=== PATIENT | female | born 1975 | race Caucasian/White ===

== ENCOUNTER 2019-02-05 20:48 | Emergency (ER) | payer OTHER ==
[~2019-02-05] VITALS: Ht 157.5 cm; Wt 85.7 kg
[~2019-02-05 20:48] MED LIST: IBUP-974 PO
[2019-02-05 20:54] VITALS: BP 147/90
--- NOTE | 2019-02-05 21:01 | NUR ---
PT AMBULATED TO LOBBY WITH VSS.
--- NOTE | 2019-02-05 21:13 | NUR ---
PT AMBULATED TO BED 02.
--- NOTE | 2019-02-05 21:19 | NUR ---
43 Y/O F PRESENTS TO ER C/O SMALL PINPOINT WHITE BUMP TO BACK OF HEAD ABOUT 1.5 HOURS AGO. PT DENIES ANY HEAD TRAUMA OR INJURY. A&O X4. VSS. PAIN LEVEL 3/10 AT REST. PAIN LEVEL 7/10 TENDER TO TOUCH. PT HAS NAUSEA AND 2 SMALL EPISODES OF DIARRHEA SINCE ONSET OF HEAD PAIN. PT AFEBRILE, +CHILLS. PT ALSO C/O BILATERAL EAR PAIN. ALLERGIES: CODEINE. MED HX: DEPRESSION. HOB ELEVATED, BED IN LOWEST POSITION, BED RAIL UP X1. WAITING FOR ERMD TO EVALUATE PT.
--- NOTE | 2019-02-05 21:46 | NUR ---
DR. NORMAN EVALUATING PT BEDSIDE.
[2019-02-05] MEDS ORDERED: KETOROLAC 60 MG/2 ML VIAL IM ONE (21:50)
--- NOTE | 2019-02-05 22:13 | NUR ---
Patient discharged with v/s stable. Written and verbal after care instructions given and explained. Pt encouraged to drink plenty of fluid and take motrin as needed for pain. Patient alert, oriented and verbalized understanding of instructions. Ambulatory with steady gait. All questions addressed prior to discharge. ID band removed. Patient advised to follow up with PMD. Rx of MOTRIN 800MG WAS given. Patient educated on indication of medication including possible reaction and side effects. Opportunity to ask questions provided and answered.
[2019-02-05 22:14] VITALS: BP 147/90
== END 2019-02-05 22:14 | disposition home or self-care (01) ==
LOC: MED 20:48
DX: R51 Headache (principal); R19.7 Diarrhea, unspecified
CPT/HCPCS: 81002; 81025; 96372; 99283; J1885

== ENCOUNTER 2019-04-29 19:30 | Emergency (ER) | payer OTHER ==
[~2019-04-29] VITALS: Ht 157.5 cm; Wt 85.0 kg
[2019-04-29 19:47] VITALS: BP 128/71
--- NOTE | 2019-04-29 19:56 | NUR ---
AMBULATES TO LOBBY WITH UPRIGHT STEADY GAIT. URINE CUP PROVIDED. AWAITING AVAILABLE BED.
--- NOTE | 2019-04-29 21:17 | NUR ---
43 Y/O FEMALE C/O 01/19 EPIGASTRIC PAIN WITH NAUSEA, DIZZINESS THAT COMES AND GOES SINCE LAST NIGHT. DIARRHEA SINCE TODAY. BOWEL SOUNDS HEARD THROUGHOUT; NO TENDERNESS UPON PALPATION. PATIENT STATESM "I TRIED TO FORCE MYSELF TO VOMIT. I TOOK ANDREA SELTZER AND PEDIALYTE; NO RELIEF". ERMD MADE AWARE OF STATUS. SIDE RAILSX1. WILL CONTINUE TO MONITOR. PMH-- ASTHMA, DEPRESSION RX-- INHALER NEEDED, ALKASELTZER; NO RELIEF Addendum: 04/29/19 at 2209 by MEDDI PER PATIENT, "I ATE SOME SLOPPY JOES, AND I THINK THAT MIGHT HAVE SOMETHING TO DO WITH IT".
--- NOTE | 2019-04-29 21:17 | NUR ---
Note undone in EDM - 04/29/19 at 2142 by ARACELI 89 Y/O FEMALE C/O10/10 EPIGASTRIC PAIN WITH NAUSEA, DIZZINESS THAT COMES AND GOES SINCE LAST NIGHT. DIARRHEA SINCE TODAY. BOWEL SOUNDS HEARD THROUGHOUT; NO TENDERNESS UPON PALPATION. PATIENT STATESM "I TRIED TO FORCE MYSELF TO VOMIT. I TOOK ANDREA SELTZER AND PEDIALYTE; NO RELIEF". ERMD MADE AWARE OF STATUS. SIDE RAILSX1. WILL CONTINUE TO MONITOR. PMH-- ASTHMA, DEPRESSION RX-- INHALER NEEDED, ALKASELTZER; NO RELIEF
--- NOTE | 2019-04-29 21:17 | NUR ---
pt ambulated to er bed 04
[2019-04-29] MEDS ORDERED: FAMOTIDINE 20 MG TAB PO ONE (22:10)
[2019-04-29] MEDS ORDERED: ALUMINUM HYD/MAG/SIMETHICONE 30 ML UDC PO ONE (22:10)
[2019-04-29 23:00] VITALS: BP 128/71
--- NOTE | 2019-04-29 23:00 | NUR ---
Patient discharged with v/s stable. Written and verbal after care instructions given and explained. Patient alert, oriented and verbalized understanding of instructions. Ambulatory with steady gait. All questions addressed prior to discharge. ID band removed. Patient advised to follow up with PMD. Rx of PEPCID given. Patient educated on indication of medication including possible reaction and side effects. Opportunity to ask questions provided and answered. DISCHARGED BY DR. WHIET.
== END 2019-04-29 23:00 | disposition home or self-care (01) ==
LOC: MED 19:30
DX: K29.70 Gastritis, unspecified, without bleeding (principal); J45.909 Unspecified asthma, uncomplicated; F32.9 Major depressive disorder, single episode, unspecified; R42 Dizziness and giddiness; Z88.5 Allergy status to narcotic agent; Z98.51 Tubal ligation status
CPT/HCPCS: 81002; 81025; 99283

== ENCOUNTER 2022-02-01 17:25 | Emergency (ER) | payer OTHER ==
[~2022-02-01] VITALS: Ht 160 cm; Wt 89.4 kg
[2022-02-01 17:44] VITALS: BP 135/75
--- NOTE | 2022-02-01 18:00 | NUR ---
46 Y/O FEMALE BIB SELF C/O VAGINAL PAIN. PER PT SHE HAS A "LONG DANGLING BUMP" BY THE RIGHT SIDE OF THE VAGINAX3 WEEKS. DENIES ANY PELVIC PAIN, ABD PAIN, BLEEDING/DISCHARGE. pmh: heart murmur adverse reaction: codeine ("passed out") med: ibuprofen
[2022-02-01] MEDS ORDERED: NAPR-1704 PO ×2 (18:17→18:31)
--- NOTE | 2022-02-01 18:29 | NUR ---
Patient discharged with v/s stable. Written and verbal after care instructions ABOUT SKIN TAG AND ATROPHIC VAGINITIS given and explained. Patient alert, oriented and verbalized understanding of instructions. Ambulatory with steady gait. All questions addressed prior to discharge. ID band removed. Patient advised to follow up with PMD. Rx of NAPROXEN given. Patient educated on indication of medication including possible reaction and side effects. Opportunity to ask questions provided and answered.
== END 2022-02-01 18:29 | disposition home or self-care (01) ==
LOC: MED 17:25
DX: L91.8 Other hypertrophic disorders of the skin (principal); J45.909 Unspecified asthma, uncomplicated; Z90.49 Acquired absence of other specified parts of digestive tract
CPT/HCPCS: 99282

== ENCOUNTER 2022-06-14 15:54 | Emergency (ER) | payer OTHER ==
[~2022-06-14] VITALS: Ht 157.5 cm; Wt 91.3 kg
[~2022-06-14 15:54] MED LIST changes: +NAPR-1704 PO
[2022-06-14 15:59] VITALS: BP 137/66
[2022-06-14 16:25] LABS: BASOPHILS # (AUTO) 0.1 K/uL (0.00-0.22); BASOPHILS % (AUTO) 0.7 % (0.0-2.0); EOSINOPHILS # (AUTO) 0.3 K/uL (0-0.4); EOSINOPHILS % (AUTO) 3.4 % (0.0-4.0); HEMATOCRIT 40.9 % (36-48); LYMPHOCYTES % (AUTO) 32.9 % (20.5-51.1); MEAN CORPUSCULAR HEMOGLOBIN 29 pg (27-31); MEAN CORPUSCULAR HGB CONC 34 g/dL (33-37); MEAN CORPUSCULAR VOLUME 84.6 fL (80-94); MONOCYTES # (AUTO) 0.5 K/uL (0.8-1.0); MONOCYTES % (AUTO) 4.9 % (1.7-9.3); NEUTROPHILS # (AUTO) 5.3 K/uL (1.8-7.7); NEUTROPHILS % (AUTO) 58.1 % (42.2-75.2); PLATELET COUNT (AUTO) 290 K/uL (140-450); RED BLOOD CELL COUNT(AUTO) 4.83 MIL/uL (4.20-5.40); RED CELL DISTRIBUTION WIDTH 13.4 % (11.6-13.7); WHITE BLOOD COUNT (AUTO) 9.2 K/uL (4.8-10.8)
[2022-06-14 16:31] LABS: APPEARANCE,URINE CLEAR (CLEAR); BILIRUBIN,URINE NEGATIVE (NEGATIVE); BLOOD, URINE NEGATIVE (NEGATIVE); COLOR,URINE YELLOW (YELLOW); LEUKOCYTE ESTERASE ,URINE NEGATIVE (NEGATIVE); NITRITE, URINE NEGATIVE (NEGATIVE); PH,URINE 5.5 (5.0-9.0); UGLUCOSE NEGATIVE (NEGATIVE)
[2022-06-14] MEDS ORDERED: KETOROLAC 30 MG/ML VIAL IM ONE (16:35)
[2022-06-14 17:03] LABS: ALBUMIN 4.3 g/dL (3.4-5.0); ANION GAP 13.9 (8-16); CARBON DIOXIDE 25.5 mmol/L (21-32); POTASSIUM 3.4 mmol/L (3.5-5.1); TOTAL BILIRUBIN 0.4 mg/dL (0.0-1.0)
[2022-06-14] MEDS ORDERED: ALUM355S5 PO (18:06)
[2022-06-14] MEDS ORDERED: NAPR-1704 PO (18:06)
[2022-06-14] MEDS ORDERED: OMEP20EC11 PO (18:06)
[2022-06-14] MEDS ORDERED: ACET-10509 PO (18:06)
== END 2022-06-14 19:03 | disposition home or self-care (01) ==
LOC: MED 15:54
DX: R10.31 Right lower quadrant pain (principal); R07.81 Pleurodynia; R74.01 Elevation of levels of liver transaminase levels; E87.6 Hypokalemia; R10.9 Unspecified abdominal pain; J45.909 Unspecified asthma, uncomplicated; F32.A Depression, unspecified; Z88.5 Allergy status to narcotic agent; Z79.899 Other long term (current) drug therapy; Z90.49 Acquired absence of other specified parts of digestive tract; Z98.890 Other specified postprocedural states
CPT/HCPCS: 36415; 71101; 80053; 81003; 81025; 82150; 83690; 85025; 96372; 99284; J1885

== ENCOUNTER 2023-05-15 12:07 | Emergency (ER) | payer OTHER ==
[~2023-05-15] VITALS: Ht 157.5 cm; Wt 90.7 kg
[~2023-05-15 12:07] MED LIST changes: +ACET-10509 PO; +MAG-43 PO; +OMEP20EC11 PO
[2023-05-15 12:29] VITALS: BP 128/81; PULSE 75; RESP 15; TEMP 98; O2SAT 97
[2023-05-15] MEDS ORDERED: IBUPROFEN 600 MG TAB PO ONE (12:45)
[2023-05-15] MEDS ORDERED: IBUP-2213 PO (13:33)
[2023-05-15 13:47] VITALS: BP 128/81; PULSE 75; RESP 15; TEMP 98; O2SAT 97
== END 2023-05-15 13:49 | disposition home or self-care (01) ==
LOC: MED 12:07
DX: M79.675 Pain in left toe(s) (principal); J45.909 Unspecified asthma, uncomplicated; Z79.1 Long term (current) use of non-steroidal anti-inflammatories (NSAID); Z79.899 Other long term (current) drug therapy
CPT/HCPCS: 73660; 99283